=== PATIENT | female | born 1945 | race Caucasian/White ===

== ENCOUNTER 2016-08-08 11:50 | Emergency (ER) | payer OTHER, MEDICARE ==
[~2016-08-08] VITALS: Ht 157.5 cm; Wt 75.0 kg
[~2016-08-08 11:50] MED LIST: AUGMENTIN500TAB PO
[2016-08-08 13:36] VITALS: BP 134/83
== END 2016-08-08 13:39 | disposition home or self-care (01) | DRG 923 ==
LOC: ED 11:50
DX: Z04.1 Encounter for examination and observation following transport accident (principal); V49.49XA Driver injured in collision with other motor vehicles in traffic accident, initial encounter; Y92.488 Other paved roadways as the place of occurrence of the external cause

== ENCOUNTER 2024-05-22 17:42 | Inpatient (IN) | payer MEDICARE ==
[2024-05-22] VITALS (15 sets, daily range): BP systolic 125–166; BP diastolic 59–105
[~2024-05-22] VITALS: Ht 157.5 cm; Wt 57.0 kg
[2024-05-22] MEDS ORDERED: methylPREDNISolone SODIUM SUCC 125 MG/2 ML SDV IV ONE (17:55)
[2024-05-22] MEDS ORDERED: IPRATROPIUM-Albuterol 0.5MG-2.5MG/3 ML NEB ONE ×3 (17:55)
[2024-05-22 18:24] LABS: BASO% 0.1 % (0-3); EOS% 0.1 % (0-8); HEMATOCRIT 46.8 % (37.0-47.0); HEMOGLOBIN 15.9 g/dl (12.0-16.0); IMMATURE GRANULOCYTES 0.1 % (0.0-5.0); LYMPH% 3.4 % (15-41); MEAN CELL VOLUME 93.6 fL CALC (80.0-100.0); MEAN CORPUSCULAR HGB 31.8 pG CALC (26.0-32.0); MONO% 7.3 % (2-13); NEUT# 13.25 thou/uL (2.00-7.15)
[2024-05-22 18:36] LABS: ALBUMIN 4.7 g/dL (3.2-5.0); ALKALINE PHOSPHATASE 94 u/l (38-126); ANION GAP 12 (6-22 (CALC)); BUN 15 mg/dL (8-23); BUN/CREATININE RATIO 29 (12-20 (CALC)); CARBON DIOXIDE 30 mmol/l (22-30); CHLORIDE 92 mmol/l (95-108); CREATININE 0.5 mg/dL (0.5-1.0); ESTIMATED GFR 94 ML/MIN (>=90 (CALC)); POTASSIUM 4.1 mmol/l (3.5-5.1); SGOT/AST 49 u/l (9-36); SODIUM 130 mmol/l (137-146); TOTAL PROTEIN 7.9 g/dL (6.3-8.2)
[2024-05-22 18:43] LABS: PROTHROMBIN TIME 10.5 SECONDS (9.0-12.5)
[2024-05-22] MEDS ORDERED: LEVOTHYROXIN50 MC1 PO (19:11)
[2024-05-22] MEDS ORDERED: MULTIVITAMIN1 TA1 PO (19:11)
[2024-05-22] MEDS ORDERED: VITAMIN C + PO (19:12)
[2024-05-22] MEDS ORDERED: VITAMIN D-32000 UNI1 PO (19:12)
[2024-05-22] MEDS ORDERED: BAYER ASPIRIN E81 MG PO (19:13)
[2024-05-22] MEDS ORDERED: OSCILLOCOCCINUM PO (19:14)
[2024-05-22] MEDS ORDERED: B121000 MCG PO (19:14)
[2024-05-22 19:33] LABS: URINE BILIRUBIN - DIPSTICK Negative (NEGATIVE); URINE BLOOD DIPSTICK Moderate (NEGATIVE); URINE GLUCOSE - DIPSTICK Negative (NEGATIVE); URINE KETONE Negative (NEGATIVE); URINE LEUK ESTERASE Negative (NEGATIVE); URINE NITRITE - DIPSTICK Negative (Negative); URINE PH 5.5 (4.5-8.0); URINE PROTEIN - DIPSTICK >=300 mg/dL (NEG-TRACE); URINE SPECIFIC GRAVITY >=1.030; URINE UROBILINOGEN - DIPSTICK 0.2 E.U./dL (0.2)
[2024-05-22 19:34] LABS: URINE COLOR Dark yellow
[2024-05-22] MEDS ORDERED: AZITHROMYCIN 500 MG in SODIUM CHLORIDE 0.9% 500 ML IV ONE (19:40)
[2024-05-22 19:41] LABS: URINE MUCUS FEW hpf (NONE-FEW); URINE SQUAMOUS EPITHELIAL CELL FEW EPI/hpf (0-FEW)
[2024-05-22 19:42] LABS: URINE HYALINE CAST FEW lpf (NONE-RARE)
[2024-05-22] MEDS ORDERED: Polyethylene Glycol 3350 17 GM/PKT PO PRN (20:15)
[2024-05-22] MEDS ORDERED: ACETAMINOPHEN 325 MG/TAB PO PRN (20:15)
[2024-05-22] MEDS ORDERED: ONDANSETRON 4 MG/TAB ODT SL PRN (20:15)
[2024-05-22] MEDS ORDERED: MELATONIN 3 MG/TAB PO PRN (20:15)
[2024-05-22] MEDS ORDERED: DOXYCYCLINE HYCLATE 100 MG in SODIUM CHLORIDE 0.9% 100 ML IV SCH (20:15)
[2024-05-22] MEDS ORDERED: NICOTINE TRANSDERMAL 21 MG/PATCH TD ONE (20:35)
[2024-05-22] MEDS ORDERED: ENOXAPARIN SODIUM 40 MG/0.4 ML SYR SC SCH (21:00)
[2024-05-22] MEDS ORDERED: methylPREDNISolone Sod Succ 40 MG/ML SDV IV SCH (22:00)
[2024-05-22] MEDS ORDERED: IPRATROPIUM-Albuterol 0.5MG-2.5MG/3 ML NEB SCH (23:00)
[2024-05-23 04:00] VITALS: BP 130/69
[2024-05-23 05:09] LABS: HEMATOCRIT 41.3 % (37.0-47.0); IMMATURE GRANULOCYTES 0.1 % (0.0-5.0); LYMPH% 3.3 % (15-41); MEAN CELL VOLUME 95.4 fL CALC (80.0-100.0); MEAN CORPUSCULAR HGB 32.1 pG CALC (26.0-32.0); MEAN CORPUSCULAR HGB CONC 33.7 g/dL CAL (32.0-36.0); MONO% 2.4 % (2-13); NEUT# 12.37 thou/uL (2.00-7.15); NEUT% 94.2 % (42-76); RED BLOOD COUNT 4.33 mill/uL (4.20-5.60); RED CELL DISTRI WIDTH 13.1 % (11.5-15.5)
[2024-05-23 05:15] LABS: HEMOGLOBIN 13.9 g/dl (12.0-16.0)
[2024-05-23 05:26] LABS: BILIRUBIN, TOTAL 0.6 mg/dL (0.02-1.3); CREATININE 0.6 mg/dL (0.5-1.0); MAGNESIUM 1.9 mg/dL (1.6-2.3); POTASSIUM 4.4 mmol/l (3.5-5.1)
[2024-05-23 05:32] LABS: ALBUMIN 3.6 g/dL (3.2-5.0); TOTAL PROTEIN 6.3 g/dL (6.3-8.2)
[2024-05-23 07:00] VITALS: BP 140/83
[2024-05-23] MEDS ORDERED: guaiFENesin 200 MG/10 ML UDC PO PRN (10:55)
[2024-05-23 11:07] VITALS: BP 133/66
[2024-05-23 19:01] VITALS: BP 134/77
[2024-05-23] MEDS ORDERED: CEFEPIME HYDROCHLORIDE 2 GM in SODIUM CHLORIDE 0.9% 100 ML IV SCH (20:00)
[2024-05-23 23:40] VITALS: BP 130/79
[2024-05-24 04:20] VITALS: BP 116/65
[2024-05-24 05:11] LABS: BASO% 0.1 % (0-3); HEMATOCRIT 40.7 % (37.0-47.0); HEMOGLOBIN 13.9 g/dl (12.0-16.0); IMMATURE GRANULOCYTES 0.3 % (0.0-5.0); MEAN CELL VOLUME 94.9 fL CALC (80.0-100.0); MEAN CORPUSCULAR HGB 32.4 pG CALC (26.0-32.0); MEAN CORPUSCULAR HGB CONC 34.2 g/dL CAL (32.0-36.0); MONO% 3.9 % (2-13); NEUT# 14.29 thou/uL (2.00-7.15); NEUT% 92.7 % (42-76); RED BLOOD COUNT 4.29 mill/uL (4.20-5.60); RED CELL DISTRI WIDTH 13.4 % (11.5-15.5)
[2024-05-24 05:23] LABS: ALBUMIN 3.5 g/dL (3.2-5.0); BILIRUBIN, TOTAL 0.5 mg/dL (0.02-1.3); CREATININE 0.6 mg/dL (0.5-1.0); TOTAL PROTEIN 6.1 g/dL (6.3-8.2)
[2024-05-24 07:07] VITALS: BP 129/62
[2024-05-24 10:50] VITALS: BP 122/64
[2024-05-24] MEDS ORDERED: VANCOMYCIN HCL 750 MG in SODIUM CHLORIDE 0.9% 235 ML IV SCH (11:30)
[2024-05-24] MEDS ORDERED: NICOTINE TRANSDERMAL 21 MG/PATCH TD SCH (11:30)
[2024-05-24 15:30] VITALS: BP 127/70
[2024-05-24 19:07] VITALS: BP 135/72
[2024-05-25] VITALS (7 sets, daily range): BP systolic 122–154; BP diastolic 61–78
[2024-05-25 04:31] LABS: BASO% 0.1 % (0-3); HEMATOCRIT 39.1 % (37.0-47.0); IMMATURE GRANULOCYTES 0.4 % (0.0-5.0); LYMPH% 4.7 % (15-41); MEAN CELL VOLUME 96.8 fL CALC (80.0-100.0); MEAN CORPUSCULAR HGB 32.2 pG CALC (26.0-32.0); MEAN CORPUSCULAR HGB CONC 33.2 g/dL CAL (32.0-36.0); NEUT# 12.49 thou/uL (2.00-7.15); NEUT% 91.8 % (42-76); RED BLOOD COUNT 4.04 mill/uL (4.20-5.60); RED CELL DISTRI WIDTH 13.5 % (11.5-15.5)
[2024-05-25 04:47] LABS: ALBUMIN 3.1 g/dL (3.2-5.0); BILIRUBIN, TOTAL 0.5 mg/dL (0.02-1.3); CREATININE 0.6 mg/dL (0.5-1.0); POTASSIUM 5.1 mmol/l (3.5-5.1); TOTAL PROTEIN 5.5 g/dL (6.3-8.2)
[2024-05-25] MEDS ORDERED: methylPREDNISolone Sod Succ 40 MG/ML SDV IV SCH (18:00)
[2024-05-26] VITALS: BP 147/73
[2024-05-26 04:26] VITALS: BP 155/79
[2024-05-26 04:41] VITALS: BP 155/79
[2024-05-26 05:27] LABS: BASO% 0.1 % (0-3); HEMATOCRIT 42.6 % (37.0-47.0); HEMOGLOBIN 14.2 g/dl (12.0-16.0); LYMPH% 9.7 % (15-41); MEAN CELL VOLUME 96.2 fL CALC (80.0-100.0); MEAN CORPUSCULAR HGB 32.1 pG CALC (26.0-32.0); MEAN CORPUSCULAR HGB CONC 33.3 g/dL CAL (32.0-36.0); MONO% 8.2 % (2-13); NEUT# 9.84 thou/uL (2.00-7.15); RED BLOOD COUNT 4.43 mill/uL (4.20-5.60); RED CELL DISTRI WIDTH 13.4 % (11.5-15.5)
[2024-05-26 05:39] LABS: ALBUMIN 3.3 g/dL (3.2-5.0); BILIRUBIN, TOTAL 0.5 mg/dL (0.02-1.3); CREATININE 0.7 mg/dL (0.5-1.0); MAGNESIUM 2.1 mg/dL (1.6-2.3); POTASSIUM 4.8 mmol/l (3.5-5.1)
[2024-05-26 06:56] VITALS: BP 145/86
[2024-05-26] MEDS ORDERED: DOXYCYCLINE100 MG PO (09:56)
[2024-05-26] MEDS ORDERED: PREDNISONE10 MG PO (09:57)
== END 2024-05-26 10:54 | disposition home health service (06) | DRG 190 ==
LOC: ED 17:42 → ED-I 19:57 → ED 20:10 → MS2 20:11
PROVIDERS: Nurse Practitioner; Nurse Practitioner Family; ADMIT Internal Medicine; ATTEND Internal Medicine
DX: J44.1 Chronic obstructive pulmonary disease with (acute) exacerbation (principal); J96.01 Acute respiratory failure with hypoxia; J96.02 Acute respiratory failure with hypercapnia; E87.1 Hypo-osmolality and hyponatremia; E03.9 Hypothyroidism, unspecified; F17.210 Nicotine dependence, cigarettes, uncomplicated; Z20.822 Contact with and (suspected) exposure to COVID-19
CPT/HCPCS: J0456; J0692; J0696; J1650; J3370